=== PATIENT | female | born 2000 | race African-American/Black ===

== ENCOUNTER 2020-01-21 23:55 | Inpatient (IN) ==
[2020-01-22] MEDS ORDERED: MEPERIDINE 50 MG/1 ML VIAL IV PRN (00:13)
[2020-01-22] MEDS ORDERED: LACTATED RINGERS 1,000 ML IV PRN (00:13)
[2020-01-22] MEDS ORDERED: BUTORPHANOL 2 MG/ML VIAL IV PRN (00:13)
[2020-01-22] MEDS ORDERED: ONDANSETRON 4 MG/2 ML VIAL IV PRN ×2 (00:13→18:14)
[2020-01-22] MEDS ORDERED: AMPICILLIN INJ 2,000 MG in SODIUM CHLORIDE 0.9% 100 ML IV ONE (00:25)
[2020-01-22] MEDS ORDERED: OXYTOCIN/LR 20 UNIT/1,000 ML BAG IV SCH (00:30)
[2020-01-22 00:33] LABS: Basophils % 0.3 % (0.0-0.8); Eosinophils # 0.2 10*3/uL (0.0-0.87); Eosinophils % 1.4 % (0.00-10.9); Hematocrit 29.6 VOL% (35.7-47.0); Hemoglobin 9.4 GM/DL (12.0-16.0); Immature Granulocytes % 0.8 %; Lymphocytes # 2.3 10*3/uL (1.4-4.0); Lymphocytes % 19.1 % (21.3-54.2); Mean Corpuscular HGB Conc 31.8 GM/DL (32-36); Mean Corpuscular Volume 89.4 FL (87-102); Monocytes % 8.7 % (1.7-12.7); Neutrophils % 69.7 % (38.7-73.9); Platelet Count 245 T/CUMM (130-400); Red Blood Count 3.31 MC/CUMM (3.8-5.5); Red Cell Distribution Width 16.3 % (9.3-17.3)
[2020-01-22 00:59] LABS: Alanine Aminotransferase 21 U/L (13-56); Albumin 2.7 G/DL (3.4-5.0); Alkaline Phosphatase 179 U/L (45-117); Aspartate Amino Transferase 21 U/L (0-37); Bilirubin,Total < 0.39 MG/DL (0.2-1.0); Blood Urea Nitrogen 13 MG/DL (7-18); Calcium 8.8 MG/DL (8.5-10.1); Estimated Glom Filtration Rate 165 ML/MIN; Glucose 102 MG/DL (74-106); Osmolality,Calculated 265.4 MOS/KG (273-304); Total Protein 7.4 G/DL (6.4-8.3)
[2020-01-22 01:43] LABS: Hepatitis B Surface Ag Quant < 0.10 Index; Hepatitis B Surface Ag Result Negative (Negative)
[2020-01-22] MEDS: AMPICILLIN INJ 1,000 MG in SODIUM CHLORIDE 0.9% 100 ML IV SCH ×3 (06:26→13:21)
[2020-01-22] MEDS ORDERED: ePHEDrine 50 MG/ML AMP IV PRN (07:33)
[2020-01-22] MEDS ORDERED: FAMOTIDINE 20 MG/2 ML VIAL IV ONE (07:33)
[2020-01-22] MEDS ORDERED: CITRIC ACID/SODIUM CITRATE 30 ML UDCUP PO ONE (07:33)
[2020-01-22] MEDS ORDERED: LACTATED RINGERS 1,000 ML IV ONE (07:33)
[2020-01-22] MEDS ORDERED: NALOXONE 0.4 MG/ML VIAL IV PRN (07:34)
[2020-01-22] MEDS ORDERED: LACTATED RINGERS 250 ML IV PRN (07:34)
[2020-01-22] MEDS ORDERED: diphenhydrAMINE 50 MG/1 ML VIAL IV PRN ×2 (07:34)
[2020-01-22] MEDS ORDERED: PROMETHAZINE 25 MG/1 ML VIAL IM ONE (07:34)
[2020-01-22] MEDS ORDERED: hydrOXYzine HCL 25 MG/1 ML VIAL IM PRN (07:34)
[2020-01-22] MEDS ORDERED: fentaNYL 2 MCG/ROPIV 0.2% EPID 100 ML EPIDURAL SCH (08:00)
[2020-01-22 10:51] LABS: Apearance,Urine CLEAR (Clear); Bacteria,Urine Occasional /HPF (Few); Bilirubin,Urine Negative (Negative); Blood, Urine Negative (Negative); Glucose,Urine (UA) 150 mg/dL (Negative); Ketones,Urine Negative (Negative); Mucus,Urine Moderate /LPF (Occasional); Nitrite,Urine Negative (Negative); Protein,Urine Negative; RBC,Urine <1 /HPF (0-4); Squamous Epithelial Cell,Urine Occasional /HPF (0-10); Urine Color Yellow (Yellow); Urine Specific Gravity 1.025 (1.001-1.035); Urine Urobilinogen < 2.0 EU/DL (0.2-1.0); WBC,Urine 16 /HPF (0-6)
[2020-01-22] MEDS ORDERED: ceFAZolin 2,000 MG in PREMIX 1 EACH IV ONE (17:16)
[2020-01-22] MEDS ORDERED: miSOPROStoL 200 MCG TABLET ONE (17:26)
[2020-01-22] MEDS ORDERED: CARBOPROST TROMETHAMINE 250 MCG/ML AMP IM ONE (17:27)
[2020-01-22] MEDS ORDERED: OXYTOCIN/LR 20 UNIT/1,000 ML BAG IV ONE ×2 (17:27→18:14)
[2020-01-22] MEDS ORDERED: METHYLERGONOVINE 0.2 MG/1 ML AMP ONE (17:27)
[2020-01-22] MEDS ORDERED: RHO(D) IMMUNE GLOBULIN 300 MCG SYRINGE IM ONE (18:14)
[2020-01-22] MEDS ORDERED: SIMETHICONE CHEW 80 MG TABLET PO PRN (18:14)
[2020-01-22] MEDS ORDERED: ACETAMINOPHEN 325 MG TABLET PO PRN (18:14)
[2020-01-22] MEDS ORDERED: MORPHINE 10 MG/10 ML VIAL ONE (18:24)
[2020-01-22] MEDS ORDERED: LIDOCAINE MPF 2% /EPI 20 ML VIAL ONE (18:25)
[2020-01-22] MEDS ORDERED: LACTATED RINGERS 1,000 ML IV SCH (18:30)
[2020-01-22] MEDS: IBUPROFEN 800 MG TABLET PO PRN (20:31)
[2020-01-22] MEDS: DOCUSATE SODIUM 100 MG CAPSULE PO SCH (23:51)
[2020-01-23] MEDS: ceFAZolin 1,000 MG in SYRINGE 1 EACH IV SCH ×2 (01:40→09:15)
[2020-01-23 03:18] LABS: Basophils % 0.3 % (0.0-0.8); Eosinophils # 0.1 10*3/uL (0.0-0.87); Eosinophils % 0.4 % (0.00-10.9); Hematocrit 26.5 VOL% (35.7-47.0); Hemoglobin 8.3 GM/DL (12.0-16.0); Immature Granulocytes % 0.7 %; Lymphocytes # 1.6 10*3/uL (1.4-4.0); Lymphocytes % 11.3 % (21.3-54.2); Mean Corpuscular HGB Conc 31.3 GM/DL (32-36); Mean Corpuscular Volume 90.8 FL (87-102); Mean Platelet Volume 11.8 FL (9.6-12.0); Monocytes % 5.7 % (1.7-12.7); Neutrophils % 81.6 % (38.7-73.9); Platelet Count 187 T/CUMM (130-400); Red Blood Count 2.92 MC/CUMM (3.8-5.5); Red Cell Distribution Width 16.5 % (9.3-17.3); White Blood Count 14.1 T/CUMM (4-12)
[2020-01-23] MEDS: DOCUSATE SODIUM 100 MG CAPSULE PO SCH ×2 (08:39→21:19)
[2020-01-23] MEDS: FERROUS SULFATE 325 MG TABLET PO SCH ×2 (08:40→21:19)
[2020-01-23] MEDS: MULTIVITAMIN (PRENATAL) TABLET PO SCH (08:40)
[2020-01-23 10:04] LABS: Basophils % 0.3 % (0.0-0.8); Eosinophils # 0.1 10*3/uL (0.0-0.87); Eosinophils % 0.5 % (0.00-10.9); Hematocrit 25.5 VOL% (35.7-47.0); Hemoglobin 8.2 GM/DL (12.0-16.0); Immature Granulocytes % 0.5 %; Immature Granulocytes Absolute 0.08 #; Lymphocytes # 1.6 10*3/uL (1.4-4.0); Lymphocytes % 10.5 % (21.3-54.2); Mean Corpuscular HGB Conc 32.2 GM/DL (32-36); Mean Corpuscular Volume 89.8 FL (87-102); Mean Platelet Volume 11.1 FL (9.6-12.0); Neutrophils % 83.2 % (38.7-73.9); Platelet Count 179 T/CUMM (130-400); Red Blood Count 2.84 MC/CUMM (3.8-5.5); Red Cell Distribution Width 16.3 % (9.3-17.3); White Blood Count 14.9 T/CUMM (4-12)
[2020-01-23] MEDS: IBUPROFEN 800 MG TABLET PO PRN (14:58)
[2020-01-23] MEDS: MAGNESIUM HYDROXIDE SUSP 30 ML UDCUP PO PRN (21:19)
[2020-01-24] MEDS: MAGNESIUM HYDROXIDE SUSP 30 ML UDCUP PO PRN (09:00)
[2020-01-24] MEDS: FERROUS SULFATE 325 MG TABLET PO SCH (09:02)
[2020-01-24] MEDS: MULTIVITAMIN (PRENATAL) TABLET PO SCH (09:02)
[2020-01-24] MEDS: DOCUSATE SODIUM 100 MG CAPSULE PO SCH (09:02)
[2020-01-24 11:32] VITALS: BP 129/81
[2020-01-24] MEDS ORDERED: DIPH/TET/ACEL PERT BOOSTER VACCINE 0.5 ML VIAL IM ONE (12:24)
== END 2020-01-24 13:20 | disposition home or self-care (01) | DRG 540 ==
LOC: N.LD 23:55 → N.OB 01-22 22:58
PROVIDERS: ADMIT Obstetrics & Gynecology; ATTEND Obstetrics & Gynecology
PROC: LDCSECT (ICD-10-PCS; 2020-01-22 17:50)

== ENCOUNTER 2021-03-06 21:42 | Inpatient (IN) ==
[2021-03-06] MEDS ORDERED: LACTATED RINGERS 1,000 ML IV ONE (22:20)
[2021-03-06 22:37] LABS: Bacteria,Urine Occasional /HPF (Few); Bilirubin,Urine Negative (Negative); Blood, Urine Negative (Negative); Glucose,Urine (UA) 50 mg/dL (Negative); Hyaline Casts,Urine 7 /LPF (0-3); Ketones,Urine 80 mg/dL (Negative); Mucus,Urine Many /LPF (Occasional); Nitrite,Urine Negative (Negative); Protein,Urine 100 MG/DL; Squamous Epithelial Cell,Urine Many /HPF (0-10); Urine Appearance CLOUDY (Clear); Urine Color Amber (Yellow); Urine Specific Gravity 1.026 (1.001-1.035); Urine Urobilinogen < 2.0 EU/DL (0.2-1.0)
[2021-03-06] MEDS ORDERED: BUTORPHANOL 2 MG/ML VIAL IV PRN (23:22)
[2021-03-06 23:49] LABS: Basophils # 0.1 10*3/uL (0.0-0.2); Basophils % 0.3 % (0.0-0.8); Eosinophils # 0.2 10*3/uL (0.0-0.87); Eosinophils % 1.5 % (0.00-10.9); Hematocrit 25.9 VOL% (35.7-47.0); Immature Granulocytes % 1.8 %; Immature Granulocytes Absolute 0.27 #; Lymphocytes # 2.1 10*3/uL (1.4-4.0); Lymphocytes % 13.7 % (21.3-54.2); Mean Corpuscular HGB Conc 30.9 GM/DL (32-36); Mean Corpuscular Volume 86.9 FL (87-102); Mean Platelet Volume 10.9 FL (9.6-12.0); Monocytes % 7.5 % (1.7-12.7); Neutrophils % 75.2 % (38.7-73.9); Platelet Count 189 T/CUMM (130-400); Red Blood Count 2.98 MC/CUMM (3.8-5.5); Red Cell Distribution Width 17.5 % (9.3-17.3); White Blood Count 15.4 T/CUMM (4-12)
[2021-03-06] MEDS: ONDANSETRON 4 MG/2 ML VIAL IV PRN (23:51)
[2021-03-06] MEDS: LACTATED RINGERS 1,000 ML IV SCH (23:51)
[2021-03-07 00:09] LABS: Alanine Aminotransferase 13 U/L (13-56); Albumin 2.7 G/DL (3.4-5.0); Alkaline Phosphatase 135 U/L (45-117); Aspartate Amino Transferase 18 U/L (0-37); Bilirubin,Total < 0.39 MG/DL (0.20-1.00); Blood Urea Nitrogen 8 MG/DL (7-18); Calcium 8.9 MG/DL (8.5-10.1); Carbon Dioxide 23 MMOL/L (21-32); Estimated Glom Filtration Rate 201 ML/MIN; Glucose 75 MG/DL (74-106); Potassium 3.5 MMOL/L (3.5-5.1); Sodium 136 MMOL/L (136-145)
[2021-03-07] MEDS ORDERED: ceFAZolin 2,000 MG/50 ML DUPLEX IV ONE (06:36)
[2021-03-07] MEDS ORDERED: FAMOTIDINE 20 MG/2 ML VIAL IV ONE (06:36)
[2021-03-07] MEDS ORDERED: CITRIC ACID/SODIUM CITRATE 30 ML UDCUP PO ONE (06:36)
[2021-03-07] MEDS ORDERED: OXYTOCIN/LR 20 UNIT/1,000 ML BAG IV ONE ×2 (06:42→08:34)
[2021-03-07] MEDS ORDERED: diphenhydrAMINE 50 MG/1 ML VIAL IV PRN ×2 (06:46)
[2021-03-07] MEDS ORDERED: PROMETHAZINE 25 MG/1 ML VIAL IM PRN (06:46)
[2021-03-07] MEDS ORDERED: hydrOXYzine HCL 25 MG/1 ML VIAL IM PRN (06:46)
[2021-03-07] MEDS: LACTATED RINGERS 1,000 ML IV SCH (07:07)
[2021-03-07 07:53] LABS: Rubella Antibody IgG Result Reactive (NonReactive)
[2021-03-07] MEDS ORDERED: ONDANSETRON 4 MG/2 ML VIAL ONE (08:03)
[2021-03-07] MEDS ORDERED: LACTATED RINGERS 1,000 ML IV ONE (08:03)
[2021-03-07] MEDS ORDERED: BUPIVACAINE SPINAL 0.75% 2 ML AMP SPINAL ONE (08:03)
[2021-03-07] MEDS ORDERED: PHENYLEPHRINE 1 MG/10 ML SYRINGE IV ONE (08:03)
[2021-03-07] MEDS ORDERED: ACETAMINOPHEN INJ 1,000 MG/100 ML VIAL IV ONE (08:10)
[2021-03-07 08:22] LABS: Cord Arterial Blood HCO3 23.1 MMOL/L
[2021-03-07 08:23] LABS: Cord Venous Blood PCO2 39.6 MMHG; Cord Venous Blood PO2 37.1 MMHG
[2021-03-07] MEDS ORDERED: RHO(D) IMMUNE GLOBULIN 300 MCG SYRINGE IM ONE (08:34)
[2021-03-07] MEDS ORDERED: ACETAMINOPHEN 325 MG TABLET PO PRN (08:34)
[2021-03-07] MEDS ORDERED: ONDANSETRON 4 MG/2 ML VIAL IV PRN (08:34)
[2021-03-07 08:36] LABS: Bilirubin,Urine Negative (Negative); Blood, Urine Negative (Negative); Glucose,Urine (UA) Negative (Negative); Ketones,Urine 80 mg/dL (Negative); Mucus,Urine Many /LPF (Occasional); Nitrite,Urine Negative (Negative); Protein,Urine 30 MG/DL; RBC,Urine 1 /HPF (0-4); Squamous Epithelial Cell,Urine Occasional /HPF (0-10); Urine Appearance CLEAR (Clear); Urine Color Yellow (Yellow); Urine Specific Gravity 1.021 (1.001-1.035); Urine Urobilinogen < 2.0 EU/DL (0.2-1.0)
[2021-03-07] MEDS ORDERED: LACTATED RINGERS 1,000 ML IV SCH (09:00)
[2021-03-07 09:04] LABS: Hematocrit 23.9 VOL% (35.7-47.0); Hemoglobin 7.5 GM/DL (12.0-16.0)
[2021-03-07] MEDS ORDERED: ACETAMINOPHEN 500 MG TABLET PO SCH (11:30)
[2021-03-07] MEDS: ONDANSETRON 4 MG/2 ML VIAL IV PRN (12:27)
[2021-03-07] MEDS: IBUPROFEN 800 MG TABLET PO PRN ×2 (14:02→20:34)
[2021-03-07] MEDS: oxyCODONE/ACETAMINOPHEN 5-325 MG TABLET PO PRN ×2 (14:04→20:34)
[2021-03-07 14:07] LABS: Hematocrit 23.9 VOL% (35.7-47.0); Hemoglobin 7.6 GM/DL (12.0-16.0)
[2021-03-07] MEDS: ACETAMINOPHEN 500 MG TABLET PO SCH ×2 (14:20→21:39)
[2021-03-07] MEDS: DOCUSATE SODIUM 100 MG CAPSULE PO SCH (20:34)
[2021-03-07] MEDS ORDERED: FERROUS SULFATE 325 MG TABLET PO SCH (21:00)
[2021-03-08] MEDS: ACETAMINOPHEN 500 MG TABLET PO SCH (01:44)
[2021-03-08] MEDS: IBUPROFEN 800 MG TABLET PO PRN ×3 (04:57→21:20)
[2021-03-08] MEDS: oxyCODONE/ACETAMINOPHEN 5-325 MG TABLET PO PRN ×4 (04:58→23:38)
[2021-03-08 05:15] LABS: Basophils % 0.3 % (0.0-0.8); Eosinophils # 0.3 10*3/uL (0.0-0.87); Eosinophils % 2.2 % (0.00-10.9); Hematocrit 23.3 VOL% (35.7-47.0); Hemoglobin 7.4 GM/DL (12.0-16.0); Immature Granulocytes % 0.8 %; Lymphocytes # 1.8 10*3/uL (1.4-4.0); Lymphocytes % 14.2 % (21.3-54.2); Mean Corpuscular HGB Conc 31.8 GM/DL (32-36); Mean Corpuscular Volume 86.3 FL (87-102); Mean Platelet Volume 11.5 FL (9.6-12.0); Monocytes % 8.1 % (1.7-12.7); NRBC # 0.02 10*3/uL; Neutrophils % 74.4 % (38.7-73.9); Platelet Count 174 T/CUMM (130-400); Red Cell Distribution Width 17.3 % (9.3-17.3); White Blood Count 12.5 T/CUMM (4-12)
[2021-03-08 06:17] LABS: Hepatitis B Surface Ag Quant < 0.10 Index; Hepatitis B Surface Ag Result Non-Reactive (NonReactive)
[2021-03-08 06:30] LABS: HIV Antigen/Antibody Result Nonreactive (Nonreactive)
[2021-03-08] MEDS: MULTIVITAMIN (PRENATAL) TABLET PO SCH ×2 (08:29→08:30)
[2021-03-08] MEDS: FERROUS SULFATE 325 MG TABLET PO SCH ×3 (08:30→21:20)
[2021-03-08] MEDS: DOCUSATE SODIUM 100 MG CAPSULE PO SCH ×2 (08:30→19:31)
[2021-03-08] MEDS: MAGNESIUM HYDROXIDE SUSP 30 ML UDCUP PO PRN ×5 (08:39→23:38)
[2021-03-08] MEDS: SIMETHICONE CHEW 80 MG TABLET PO PRN ×2 (11:59→19:32)
[2021-03-08] MEDS ORDERED: MAGNESIUM CITRATE 300 ML BOTTLE PO ONE (19:25)
[2021-03-09] MEDS: DOCUSATE SODIUM 100 MG CAPSULE PO SCH ×2 (01:14→09:30)
[2021-03-09] MEDS: oxyCODONE/ACETAMINOPHEN 5-325 MG TABLET PO PRN ×2 (05:05→11:39)
[2021-03-09] MEDS: IBUPROFEN 800 MG TABLET PO PRN ×2 (05:05→11:39)
[2021-03-09] MEDS: MULTIVITAMIN (PRENATAL) TABLET PO SCH (09:39)
[2021-03-09] MEDS: FERROUS SULFATE 325 MG TABLET PO SCH (09:39)
[2021-03-09 12:02] VITALS: BP 124/78
== END 2021-03-09 15:00 | disposition home or self-care (01) | DRG 540 ==
LOC: N.LDOUT 21:42 → N.LD 21:44 → N.OB 03-07 11:34
PROVIDERS: ADMIT Obstetrics & Gynecology; ATTEND Obstetrics & Gynecology
PROC: LDCSECT (ICD-10-PCS; 2021-03-07 07:30)